=== PATIENT | male | born 1970 | race Two or more races ===

== ENCOUNTER 2024-05-31 08:25 | Day surgery (SDC) | payer MEDICAID ==
[2024-05-27 11:19] LABS: Urine Bacteria None Seen /hpf (None Seen)
[2024-05-27 11:26] LABS: Basophils # (auto) 0.1 10 ^3/uL (0-0.2); Eosinophils # (auto) 0.3 10 ^3/uL (0-0.8); Eosinophils % (auto) 4.1 % (0.0-7.0); Hematocrit 47.2 % (41.0-53.0); Hemoglobin 16.2 g/dL (13.5-17.5); Lymphocytes # (auto) 1.8 10 ^3/uL (0.4-5.4); Mean Corpuscular Hemoglobin 29.8 pg (28.0-32.0); Mean Corpuscular Hgb Conc. 34.4 g/dL (32.0-36.0); Mean Corpuscular Volume 86.5 fL (80.0-100.0); Monocytes # (auto) 0.5 10 ^3/uL (0-1.3); Neutrophils # (auto) 3.8 10 ^3/uL (1.6-8.6); Neutrophils % (auto) 58.9 % (37.0-80.0); Nucleated Red Blood Cells % 0.2 %; Platelet Count (auto) 201 10^3/uL (140-450); Red Blood Cells 5.45 10^6/uL (4.5-5.90); Red Cell Distribution Width 13.3 % (11.8-14.3); White Blood Cell 6.4 10^3/uL (4.4-10.8)
[2024-05-27 11:45] LABS: INR 1.08 (0.9-1.15); Partial Thromboplastin Time 27.8 SEC (24.5-34.5); Prothrombin Time 11.4 sec (9.3-11.8)
[2024-05-27 11:54] LABS: Alanine Aminotransferase 26 U/L (7-40); Albumin 5.1 g/dL (3.2-4.8); Alkaline Phosphatase 68 U/L (46-116); Anion Gap 7 (5-15); Aspartate Aminotransferase 20 U/L (13-40); BUN/Creatinine Ratio 15.2 (10.0-20.0); Bilirubin, Total 0.9 mg/dL (0.2-1.0); Blood Urea Nitrogen 14 mg/dL (9-23); Calcium 9.9 mg/dL (8.7-10.4); Carbon Dioxide 28 mmol/L (20-31); Chloride 106 mmol/L (98-107); Glucose 99 mg/dL (74-106); Potassium 4.1 mmol/L (3.5-5.1); Sodium 141 mmol/L (136-145); Total Protein 7.4 g/dL (5.7-8.2)
[2024-05-27 11:58] LABS: Urine Blood Negative /uL (Negative); Urine Clarity Clear (Clear); Urine Color Light-Yellow (Yellow); Urine Protein, UAD Negative (Negative); Urine Specific Gravity 1.019 (1.001-1.035); Urine Squamous Epithelial Cell FEW /hpf (<5); Urine Urobilinogen Normal (Negative); Urine WBC < 1 /HPF (0-3)
[~2024-05-31] VITALS: Ht 170.2 cm; Wt 80.7 kg
[~2024-05-31 08:25] MED LIST: ACE650RS PR; AMLO1TAB21 PO; CHOL20007 OR; IBU600T PO
[2024-05-31] MEDS ORDERED: ceFAZolin 2 GM/D5W50ml 50 ML IV ONE (08:50)
[2024-05-31] MEDS ORDERED: fentaNYL CITRATE 100 MCG/2 ML VL ONE ×2 (10:30→11:17)
[2024-05-31] MEDS ORDERED: PROPOFOL 10 MG/ML 20 ML IV ONE (10:30)
[2024-05-31] MEDS ORDERED: DexAMETHasone SOD PHOS 10MG/1ML VIAL INJ ONE (10:46)
[2024-05-31] MEDS ORDERED: ONDANSETRON HCL 4 MG/2 ML VIAL ONE (10:46)
[2024-05-31] MEDS: BUPIVACAINE 0.25% INJ 50ML VIAL ONE (11:12)
[2024-05-31 11:25] VITALS: PULSE 77; RESP 10; TEMP 97.5; O2SAT 97
[2024-05-31] MEDS ORDERED: ONDANSETRON HCL 4 MG/2 ML VIAL IV ONE (11:30)
[2024-05-31] MEDS ORDERED: MEPERIDINE HCL (25 MG/ML) 1ML VIAL IV PRN (11:30)
[2024-05-31] MEDS ORDERED: ACETAMINOPHEN IV 1000 MG/100ML (10MG/ML) IV PRN (11:30)
[2024-05-31] MEDS ORDERED: HYDROmorphone HCL 2 MG/ML VL/or syr ONE (12:08)
[2024-05-31] MEDS: HYDROmorphone HCL 2 MG/ML VL/or syr IV PRN (12:11)
[2024-05-31 12:40] VITALS: BP 114/75; PULSE 78; RESP 12; O2SAT 94
--- NOTE | 2024-05-31 19:37 | DVH ---
EXAM: XY L ANKLE 2 VIEW XRAY, XY C ARM FLUOROSCOPY UP TO 60MIN HISTORY: LT ANKLE REPAIR TECHNIQUE: Intraoperative radiographs of the left ankle were obtained. FLUOROSCOPY TIME: 14.2 seconds FLUOROSCOPY IMAGES: 1 TOTAL DOSE: 0.22 mGy COMPARISON: None FINDINGS/IMPRESSION: Refer to intraoperative report for further evaluation.
--- NOTE | 2024-06-03 18:59 | DVHOP2 ---
Operative Report - 2 Report Details Date: 05/31/24 Preop Diagnosis: Left medial malleolus fracture Postop Diagnosis: as above Surgeon: Shahbaz Tineo MD Technical Services Rep: Gerry GARCIA Anesthesiologist: Lulú BEDOYA Anesthesia: Regional Implant: Ossio Screw Consent: The patient was informed of the risks and benefits of the procedure. These include but are not limited to complications of anesthesia, postoperative infection, incomplete relief of symptoms, recurrence of symptoms, damage to blood vessels, nerves and tendons, deep venous thrombosis, pulmonary embolism and possible need for repeat surgery in the future. Estimated Blood Loss: 5 cc Name of Procedure Performed Open reduction internal fixation of left medial malleolus fracture Procedure Details Procedure Details: HISTORY OF PRESENT ILLNESS: Risks/benefits/options and alternatives were di scussed in length. Risks associated with anesthesia, infection, damage to nerves and blood vessels, and bleeding or blood clots. Problems after ankle fracture surgery include ankle joint stiffness, weakness, need for further surgery and arthritis. Possible complications after ankle fracture surgery include infection and problems with healing. PROCEDURE: After all potential complications and risks as well as risks and benefits of the above-mentioned procedure was discussed at length with the patient and family, informed consent was obtained. The lower extremity was then confirmed with the operating surgeon, the patient, the nursing staff and Department of Anesthesia. The patient was then transferred to preoperative area in the Operative Suite and placed on the operating room table in supine position. At this time, the anesthesia was performed. All bony prominences were well padded at this time. A nonsterile tourniquet was placed on the left upper thigh of the patient. Left lower extremity was sterilely prepped and draped in the usual sterile fashion. The lower extremity was then elevated and exsanguinated using Esmarch and tourniquet was then placed to 250 mmHg. Next, after all bony and soft tissue landmarks were identified, a 1 cm longitudinal incision was made directly over the medial mal fracture on the Left ankle. We stayed away from large ankle wound With manual traction and manipulation with bone reduction clamps we were able to reduce patient fracture. Intraoperative fluoroscopy confirmed reduction Two k-wires held fracture reduced. Ossio screws placed to compress medial mal fracture site. wound was copiously irrigated and suctioned dry. The wounds were then closed using #2-0 Vicryl suture in subcutaneous fashion followed by 3-0 nylon on the skin. A sterile dressing was applied consistent with Adaptic, 4x4s, Kerlix, and Webril. An ankle splint was then placed on the right lower extremity. The patient was transferred [facility] the [facility] and to the Postanesthetic Care Unit. The patient tolerated the procedure well. There were no complications. Condition Good Disposition Home SHAHBAZ TINEO MD Jun 03, 2024 18:59
== END 2024-05-31 13:05 | disposition home or self-care (01) ==
LOC: SUR 08:25
PROVIDERS: ATTEND Orthopaedic Surgery Adult Reconstructive Orthopaedic Surgery
DX: S82.52XA Displaced fracture of medial malleolus of left tibia, initial encounter for closed fracture (principal); I10 Essential (primary) hypertension; Z79.899 Other long term (current) drug therapy; X58.XXXA Exposure to other specified factors, initial encounter; Y93.89 Activity, other specified; Y92.89 Other specified places as the place of occurrence of the external cause; Y99.8 Other external cause status
CPT/HCPCS: 27766; 36415; 73600; 80053; 81001; 85025; 85610; 85730; C1713; J0690; J1100; J1171; J2405; J2704; J3010; 76000; J3490